=== PATIENT | female | born 1935 | race Caucasian/White ===

== ENCOUNTER 2020-04-30 18:06 | Observation (INO) ==
[2020-05-01] MEDS ORDERED: hydrALAZINE 20 MG/1 ML VIAL IV PRN (00:08)
[2020-05-01] MEDS ORDERED: ONDANSETRON 4 MG/2 ML VIAL IV PRN (00:08)
[2020-05-01] MEDS ORDERED: ACETAMINOPHEN 325 MG TABLET PO PRN (00:08)
[2020-05-01] MEDS ORDERED: GLUCAGON 1 MG VIAL IM PRN (00:08)
[2020-05-01] MEDS ORDERED: DEXTROSE 50% 25 GM/50 ML VIAL IV PRN (00:08)
[2020-05-01] MEDS ORDERED: FUROSEMIDE 40 MG/4 ML VIAL IV ONE (00:31)
[2020-05-01 01:15] LABS: Risk Ratio 3.51; Thyroid Stimulating Hormone 92.6 uIU/ml (0.358-3.74); VLDL CHOLESTEROL 15.6 MG/DL
[2020-05-01 03:12] LABS: Basophils % 0.6 % (0.0-0.8); Eosinophils # 0.2 10*3/uL (0.0-0.87); Eosinophils % 2.5 % (0.00-10.9); Hematocrit 33.2 VOL% (35.7-47.0); Hemoglobin 10.7 GM/DL (12.0-16.0); Immature Granulocytes % 0.3 %; Immature Granulocytes Absolute 0.02 #; Lymphocytes # 1.4 10*3/uL (1.4-4.0); Mean Corpuscular HGB Conc 32.2 GM/DL (32-36); Mean Platelet Volume 11.5 FL (9.6-12.0); Monocytes % 6.7 % (1.7-12.7); Neutrophils % 68.9 % (38.7-73.9); Platelet Count 107 T/CUMM (130-400); Red Blood Count 3.46 MC/CUMM (3.8-5.5); Red Cell Distribution Width 15.1 % (9.3-17.3); White Blood Count 6.7 T/CUMM (4-12)
[2020-05-01 04:21] LABS: Calcium 7.7 MG/DL (8.5-10.1)
[2020-05-01] MEDS: POTASSIUM CHLORIDE 20 MEQ TABLET PO PRN ×3 (05:52→11:10)
[2020-05-01] MEDS ORDERED: LEVOTHYROXINE 125 MCG TABLET PO SCH (06:00)
[2020-05-01 07:35] LABS: Apearance,Urine CLEAR (Clear); Bilirubin,Urine Negative (Negative); Blood, Urine Negative (Negative); Glucose,Urine (UA) Negative (Negative); Ketones,Urine Negative (Negative); Nitrite,Urine Negative (Negative); Protein,Urine Negative; RBC,Urine <1 /HPF (0-4); Urine Color Colorless (Yellow); Urine Specific Gravity 1.005 (1.001-1.035); Urine Urobilinogen < 2.0 EU/DL (0.2-1.0)
[2020-05-01 08:24] LABS: Free T4 (Free Thyroxine) 0.85 NG/DL (0.76-1.46)
[2020-05-01] MEDS: buPROPion SR 150 MG TABLET PO SCH ×3 (08:43→21:52)
[2020-05-01] MEDS: ASPIRIN 325 MG TABLET PO SCH (08:43)
[2020-05-01] MEDS: SERTRALINE 100 MG TABLET PO SCH (08:44)
[2020-05-01] MEDS: ENOXAPARIN 30 MG/0.3 ML SYRINGE SUBCUT SCH (08:44)
[2020-05-01] MEDS: amLODIPine 5 MG TABLET PO SCH (08:44)
[2020-05-01 08:57] LABS: Troponin I 0.091 NG/ML (0.00-0.045)
[2020-05-01] MEDS ORDERED: PANTOPRAZOLE 40 MG TABLET PO SCH (09:00)
[2020-05-01 19:24] LABS: Troponin I 0.061 NG/ML (0.00-0.045)
[2020-05-01] MEDS: ATORVASTATIN 40 MG TABLET PO SCH (21:42)
[2020-05-01] MEDS: LATANOPROST 0.005% OPH SOLN 2.5 ML BOTTLE BOTH EYES SCH (21:49)
[2020-05-02] MEDS: LEVOTHYROXINE 150 MCG TABLET PO SCH (06:22)
[2020-05-02 06:28] LABS: Basophils # 0.1 10*3/uL (0.0-0.2); Eosinophils # 0.1 10*3/uL (0.0-0.87); Eosinophils % 2.5 % (0.00-10.9); Hematocrit 31.2 VOL% (35.7-47.0); Hemoglobin 9.9 GM/DL (12.0-16.0); Immature Granulocytes % 0.2 %; Immature Granulocytes Absolute 0.01 #; Lymphocytes # 0.8 10*3/uL (1.4-4.0); Lymphocytes % 16.3 % (21.3-54.2); Mean Corpuscular HGB Conc 31.7 GM/DL (32-36); Mean Corpuscular Volume 95.7 FL (87-102); Mean Platelet Volume 12.4 FL (9.6-12.0); Monocytes % 9.1 % (1.7-12.7); Neutrophils % 70.9 % (38.7-73.9); Platelet Count 97 T/CUMM (130-400); Red Blood Count 3.26 MC/CUMM (3.8-5.5); Red Cell Distribution Width 15.1 % (9.3-17.3); White Blood Count 4.8 T/CUMM (4-12)
[2020-05-02 06:59] LABS: Calcium 7.1 MG/DL (8.5-10.1)
[2020-05-02] MEDS: buPROPion SR 150 MG TABLET PO SCH (08:45)
[2020-05-02] MEDS: ASPIRIN 325 MG TABLET PO SCH (08:46)
[2020-05-02] MEDS: ENOXAPARIN 30 MG/0.3 ML SYRINGE SUBCUT SCH (08:46)
[2020-05-02] MEDS: amLODIPine 5 MG TABLET PO SCH (08:47)
[2020-05-02] MEDS: SERTRALINE 100 MG TABLET PO SCH (08:47)
[2020-05-02] MEDS ORDERED: FUROSEMIDE 40 MG/4 ML VIAL IV SCH ×2 (09:00→21:00)
[2020-05-02] MEDS: cefTRIAXone 1,000 MG in SYRINGE 1 EACH IV SCH (10:12)
[2020-05-02] MEDS: POTASSIUM CHLORIDE 20 MEQ TABLET PO PRN ×3 (10:13→17:08)
[2020-05-02 11:21] LABS: Lymphocytes 14 % (20-55); Segmented Neutrophils 84 % (50-85); Total Cells Counted 100
[2020-05-02 11:22] LABS: Platelet Estimate Adequate; Polychromasia Slight
[2020-05-02] MEDS: carvediloL 6.25 MG TABLET PO SCH ×2 (12:28→17:07)
[2020-05-02] MEDS: APIXABAN 2.5 MG TABLET PO SCH ×2 (12:28→20:46)
[2020-05-02] MEDS: FUROSEMIDE 40 MG/4 ML VIAL IV SCH (17:06)
[2020-05-02] MEDS: LATANOPROST 0.005% OPH SOLN 2.5 ML BOTTLE BOTH EYES SCH (20:45)
[2020-05-02] MEDS: ASCORBIC ACID 500 MG TABLET PO SCH (20:45)
[2020-05-02] MEDS: ATORVASTATIN 40 MG TABLET PO SCH (20:46)
[2020-05-03 05:45] LABS: Basophils # 0.1 10*3/uL (0.0-0.2); Eosinophils # 0.2 10*3/uL (0.0-0.87); Eosinophils % 3.3 % (0.00-10.9); Hematocrit 31.3 VOL% (35.7-47.0); Hemoglobin 10.1 GM/DL (12.0-16.0); Immature Granulocytes % 0.4 %; Immature Granulocytes Absolute 0.02 #; Lymphocytes % 20.4 % (21.3-54.2); Mean Corpuscular HGB Conc 32.3 GM/DL (32-36); Mean Corpuscular Volume 95.1 FL (87-102); Mean Platelet Volume 12.5 FL (9.6-12.0); Monocytes % 9.2 % (1.7-12.7); Neutrophils % 65.7 % (38.7-73.9); Platelet Count 112 T/CUMM (130-400); Red Blood Count 3.29 MC/CUMM (3.8-5.5); Red Cell Distribution Width 14.8 % (9.3-17.3); White Blood Count 5.1 T/CUMM (4-12)
[2020-05-03] MEDS: LEVOTHYROXINE 150 MCG TABLET PO SCH (05:54)
[2020-05-03 06:04] LABS: Calcium 7.3 MG/DL (8.5-10.1); Osmolality,Calculated 283.3 MOS/KG (273-304)
[2020-05-03] MEDS: carvediloL 6.25 MG TABLET PO SCH (08:30)
[2020-05-03] MEDS: APIXABAN 2.5 MG TABLET PO SCH (08:48)
[2020-05-03] MEDS: SERTRALINE 100 MG TABLET PO SCH (08:48)
[2020-05-03] MEDS: FUROSEMIDE 40 MG/4 ML VIAL IV SCH (08:48)
[2020-05-03] MEDS: amLODIPine 5 MG TABLET PO SCH (08:48)
[2020-05-03] MEDS: ASCORBIC ACID 500 MG TABLET PO SCH (08:48)
[2020-05-03] MEDS ORDERED: ASPIRIN EC 81 MG TABLET PO SCH (09:00)
[2020-05-03] MEDS ORDERED: POTASSIUM CHLORIDE 20 MEQ TABLET PO SCH (09:00)
[2020-05-03] MEDS: cefTRIAXone 1,000 MG in SYRINGE 1 EACH IV SCH (09:26)
[2020-05-03] MEDS: POTASSIUM CHLORIDE 20 MEQ TABLET PO PRN (09:29)
[2020-05-03 11:05] VITALS: BP 94/55
[2020-05-03] MEDS ORDERED: PNEUMOCOCCAL VACCINE (23 VALENT) 0.5 ML VIAL IM ONE (12:48)
== END 2020-05-03 15:59 | disposition home health service (06) ==
LOC: N.TELEN → SUATTDRO 21:58
PROVIDERS: ADMIT Internal Medicine; ATTEND Hospitalist

== ENCOUNTER 2020-12-05 11:53 | Inpatient (IN) ==
[2020-12-05] MEDS ORDERED: GLUCAGON 1 MG VIAL IM PRN (14:17)
[2020-12-05] MEDS ORDERED: DEXTROSE 50% 25 GM/50 ML VIAL IV PRN (14:17)
[2020-12-05] MEDS ORDERED: ACETAMINOPHEN 325 MG TABLET PO PRN (14:17)
[2020-12-05] MEDS ORDERED: cefTRIAXone 1,000 MG in SODIUM CHLORIDE 0.9% 100 ML IV SCH (15:30)
[2020-12-05] MEDS ORDERED: FUROSEMIDE 40 MG/4 ML VIAL IV ONE (15:44)
[2020-12-05 15:56] LABS: Basophils % 0.2 % (0.0-0.8); Eosinophils % 0.1 % (0.00-10.9); Hematocrit 35.3 VOL% (35.7-47.0); Hemoglobin 11.2 GM/DL (12.0-16.0); Immature Granulocytes % 0.4 %; Immature Granulocytes Absolute 0.05 #; Lymphocytes # 0.6 10*3/uL (1.4-4.0); Lymphocytes % 5.1 % (21.3-54.2); Mean Corpuscular HGB Conc 31.7 GM/DL (32-36); Mean Corpuscular Volume 90.1 FL (87-102); Mean Platelet Volume 12.5 FL (9.6-12.0); Monocytes % 8.3 % (1.7-12.7); NRBC # 0.02 10*3/uL; Neutrophils % 85.9 % (38.7-73.9); Platelet Count 75 T/CUMM (130-400); Red Blood Count 3.92 MC/CUMM (3.8-5.5); Red Cell Distribution Width 15.4 % (9.3-17.3); White Blood Count 11.9 T/CUMM (4-12)
[2020-12-05 16:03] LABS: Osmolality,Calculated 288.7 MOS/KG (273-304); Potassium 3.2 MMOL/L (3.5-5.1)
[2020-12-05 16:08] LABS: Calcium 5.6 MG/DL (8.5-10.1)
[2020-12-05 16:15] LABS: Troponin I 0.272 NG/ML (0.00-0.045)
[2020-12-05 16:20] LABS: Anisocytosis 1+; Hypochromasia 1+
[2020-12-05 16:21] LABS: Burr Cells Few; Elliptocytes Few; Platelet Estimate Decreased; Polychromasia 1+
[2020-12-05] MEDS ORDERED: POTASSIUM CHLORIDE RIDER 10 MEQ in PREMIX 1 EACH IV PRN (16:22)
[2020-12-05] MEDS ORDERED: SODIUM CHLORIDE 0.9% 500 ML IV ONE (16:40)
[2020-12-05] MEDS ORDERED: LIDOCAINE 1% 20 ML VIAL MISC INJ ONE (16:50)
[2020-12-05] MEDS: carvediloL 6.25 MG TABLET PO SCH (18:05)
[2020-12-05] MEDS: POTASSIUM CHLORIDE 20 MEQ TABLET PO PRN ×2 (18:05→21:08)
[2020-12-05] MEDS: AZITHROMYCIN INJ 500 MG in SODIUM CHLORIDE 0.9% 250 ML IV SCH (18:05)
[2020-12-05 18:38] LABS: Troponin I 0.257 NG/ML (0.00-0.045)
[2020-12-05] MEDS: ATORVASTATIN 40 MG TABLET PO SCH (21:08)
[2020-12-05] MEDS: CALCIUM (CARBONATE) 500 MG TABLET PO SCH (21:09)
[2020-12-05] MEDS: APIXABAN 2.5 MG TABLET PO SCH (21:09)
[2020-12-05] MEDS: ONDANSETRON 4 MG/2 ML VIAL IV PRN (21:10)
[2020-12-05] MEDS: MUPIROCIN 2% OINT 22 GM TUBE TOP SCH (21:12)
[2020-12-05] MEDS: LATANOPROST 0.005% OPH SOLN 2.5 ML BOTTLE BOTH EYES SCH (21:15)
[2020-12-05] MEDS: ALBUTEROL/IPRATROPIUM 3 ML NEB RESP TX SCH (23:04)
[2020-12-06] MEDS: POTASSIUM CHLORIDE 20 MEQ TABLET PO PRN (00:31)
[2020-12-06 05:20] LABS: Basophils % 0.2 % (0.0-0.8); Eosinophils % 0.1 % (0.00-10.9); Hematocrit 30.3 VOL% (35.7-47.0); Hemoglobin 9.6 GM/DL (12.0-16.0); Immature Granulocytes % 0.5 %; Immature Granulocytes Absolute 0.06 #; Lymphocytes # 0.8 10*3/uL (1.4-4.0); Lymphocytes % 7.3 % (21.3-54.2); Mean Corpuscular HGB Conc 31.7 GM/DL (32-36); Mean Corpuscular Volume 91.5 FL (87-102); Mean Platelet Volume 12.7 FL (9.6-12.0); Monocytes % 9.6 % (1.7-12.7); NRBC # 0.03 10*3/uL; Neutrophils % 82.3 % (38.7-73.9); Platelet Count 67 T/CUMM (130-400); Red Blood Count 3.31 MC/CUMM (3.8-5.5); Red Cell Distribution Width 15.4 % (9.3-17.3); White Blood Count 11.3 T/CUMM (4-12)
[2020-12-06 05:29] LABS: Osmolality,Calculated 292.4 MOS/KG (273-304); Parathyroid Hormone Intact 62.4 PG/ML (18.4-80.1); Potassium 3.9 MMOL/L (3.5-5.1)
[2020-12-06] MEDS: ALBUTEROL/IPRATROPIUM 3 ML NEB RESP TX SCH ×4 (05:42→19:29)
[2020-12-06 05:46] LABS: Hypochromasia 1+; Lymphocytes 7 % (20-55); Microcytosis 1+; Nucleated Red Blood Cells 1 (0-5); Ovalocytes Slight; Platelet Estimate Decreased; Segmented Neutrophils 89 % (50-85); Total Cells Counted 100
[2020-12-06 05:50] LABS: Calcium 5.3 MG/DL (8.5-10.1)
[2020-12-06] MEDS: LEVOTHYROXINE 125 MCG TABLET PO SCH (06:19)
[2020-12-06] MEDS: APIXABAN 2.5 MG TABLET PO SCH (08:35)
[2020-12-06] MEDS: PANTOPRAZOLE 40 MG TABLET PO SCH (08:36)
[2020-12-06] MEDS: CHOLECALCIFEROL 1,000 UNIT TABLET PO SCH (08:36)
[2020-12-06] MEDS: carvediloL 6.25 MG TABLET PO SCH ×2 (08:36→16:02)
[2020-12-06] MEDS: buPROPion XL 150 MG TABLET PO SCH (08:37)
[2020-12-06] MEDS: SERTRALINE 100 MG TABLET PO SCH (08:37)
[2020-12-06] MEDS: CALCIUM (CARBONATE) 500 MG TABLET PO SCH ×3 (08:38→21:12)
[2020-12-06] MEDS: MUPIROCIN 2% OINT 22 GM TUBE TOP SCH ×2 (08:38→21:12)
[2020-12-06] MEDS: cefTRIAXone 1,000 MG in SODIUM CHLORIDE 0.9% 100 ML IV SCH (08:38)
[2020-12-06] MEDS ORDERED: FUROSEMIDE 40 MG/4 ML VIAL IV SCH (09:00)
[2020-12-06] MEDS ORDERED: ASPIRIN CHEW 81 MG TABLET PO SCH (09:00)
[2020-12-06] MEDS: ASPIRIN EC 81 MG TABLET PO SCH (09:09)
[2020-12-06] MEDS: ASCORBIC ACID 500 MG TABLET PO SCH ×2 (09:15→21:12)
[2020-12-06] MEDS ORDERED: CALCIUM GLUCONATE 2,000 MG in SODIUM CHLORIDE 0.9% 100 ML IV ONE (15:00)
[2020-12-06] MEDS: AZITHROMYCIN INJ 500 MG in SODIUM CHLORIDE 0.9% 250 ML IV SCH (16:02)
[2020-12-06] MEDS: ATORVASTATIN 40 MG TABLET PO SCH (21:12)
[2020-12-06] MEDS: LATANOPROST 0.005% OPH SOLN 2.5 ML BOTTLE BOTH EYES SCH (21:15)
[2020-12-07] MEDS: ALBUTEROL/IPRATROPIUM 3 ML NEB RESP TX SCH ×4 (00:42→19:37)
[2020-12-07 05:21] LABS: Basophils % 0.3 % (0.0-0.8); Eosinophils # 0.1 10*3/uL (0.0-0.87); Hematocrit 30.2 VOL% (35.7-47.0); Hemoglobin 9.5 GM/DL (12.0-16.0); Immature Granulocytes % 0.8 %; Immature Granulocytes Absolute 0.09 #; Lymphocytes # 1.4 10*3/uL (1.4-4.0); Lymphocytes % 12.6 % (21.3-54.2); Mean Corpuscular HGB Conc 31.5 GM/DL (32-36); Mean Corpuscular Volume 92.1 FL (87-102); Mean Platelet Volume 12.7 FL (9.6-12.0); Monocytes % 9.4 % (1.7-12.7); Neutrophils % 75.9 % (38.7-73.9); Red Blood Count 3.28 MC/CUMM (3.8-5.5); Red Cell Distribution Width 15.5 % (9.3-17.3); White Blood Count 10.8 T/CUMM (4-12)
[2020-12-07 05:25] LABS: Platelet Count 97 T/CUMM (130-400)
[2020-12-07 05:33] LABS: Calcium 6.4 MG/DL (8.5-10.1); Osmolality,Calculated 301.8 MOS/KG (273-304); Potassium 4.1 MMOL/L (3.5-5.1)
[2020-12-07 05:39] LABS: Hypochromasia 1+
[2020-12-07 05:40] LABS: Microcytosis 1+; Ovalocytes Slight; Platelet Estimate Decreased; Tear Drop Cells Slight
[2020-12-07] MEDS: LEVOTHYROXINE 125 MCG TABLET PO SCH (06:10)
[2020-12-07] MEDS: PANTOPRAZOLE 40 MG TABLET PO SCH (08:44)
[2020-12-07] MEDS: buPROPion XL 150 MG TABLET PO SCH (08:44)
[2020-12-07] MEDS: SERTRALINE 100 MG TABLET PO SCH (08:44)
[2020-12-07] MEDS: ASCORBIC ACID 500 MG TABLET PO SCH ×2 (08:45→20:36)
[2020-12-07] MEDS: carvediloL 6.25 MG TABLET PO SCH (08:45)
[2020-12-07] MEDS: CALCIUM (CARBONATE) 500 MG TABLET PO SCH ×3 (08:45→20:37)
[2020-12-07] MEDS: CHOLECALCIFEROL 1,000 UNIT TABLET PO SCH (08:45)
[2020-12-07] MEDS: ASPIRIN EC 81 MG TABLET PO SCH (08:45)
[2020-12-07] MEDS: MUPIROCIN 2% OINT 22 GM TUBE TOP SCH ×2 (08:51→20:37)
[2020-12-07] MEDS: cefTRIAXone 1,000 MG in SODIUM CHLORIDE 0.9% 100 ML IV SCH (08:51)
[2020-12-07] MEDS: ALBUMIN 25% 12.5 GM/50 ML VIAL IV SCH ×2 (12:58→20:37)
[2020-12-07 13:57] LABS: Bacteria,Urine Few /HPF (Few); Bilirubin,Urine Negative (Negative); Blood, Urine Small mg/dL (Negative); Glucose,Urine (UA) Negative (Negative); Hyaline Casts,Urine 31 /LPF (0-3); Ketones,Urine 5 mg/dL (Negative); Mucus,Urine Occasional /LPF (Occasional); Nitrite,Urine Negative (Negative); Protein,Urine 30 MG/DL; Squamous Epithelial Cell,Urine Occasional /HPF (0-10); Urine Appearance CLOUDY (Clear); Urine Color Yellow (Yellow); Urine Specific Gravity 1.015 (1.001-1.035); Urine Urobilinogen < 2.0 EU/DL (0.2-1.0); WBC,Urine 526 /HPF (0-6)
[2020-12-07] MEDS: carvediloL 12.5 MG TABLET PO SCH (16:11)
[2020-12-07] MEDS: AZITHROMYCIN INJ 500 MG in SODIUM CHLORIDE 0.9% 250 ML IV SCH (16:27)
[2020-12-07] MEDS: ATORVASTATIN 40 MG TABLET PO SCH (20:37)
[2020-12-07] MEDS: LATANOPROST 0.005% OPH SOLN 2.5 ML BOTTLE BOTH EYES SCH (20:37)
[2020-12-08] MEDS: ALBUTEROL/IPRATROPIUM 3 ML NEB RESP TX SCH ×4 (00:39→19:45)
[2020-12-08] MEDS: ALBUMIN 25% 12.5 GM/50 ML VIAL IV SCH (05:26)
[2020-12-08 05:39] LABS: Basophils % 0.4 % (0.0-0.8); Eosinophils # 0.2 10*3/uL (0.0-0.87); Eosinophils % 2.3 % (0.00-10.9); Hematocrit 29.2 VOL% (35.7-47.0); Hemoglobin 9.4 GM/DL (12.0-16.0); Immature Granulocytes % 0.8 %; Immature Granulocytes Absolute 0.08 #; Lymphocytes # 1.7 10*3/uL (1.4-4.0); Lymphocytes % 17.7 % (21.3-54.2); Mean Corpuscular HGB Conc 32.2 GM/DL (32-36); Mean Corpuscular Volume 89.3 FL (87-102); Mean Platelet Volume 12.6 FL (9.6-12.0); Monocytes % 10.6 % (1.7-12.7); NRBC # 0.02 10*3/uL; Neutrophils % 68.2 % (38.7-73.9); Platelet Count 119 T/CUMM (130-400); Red Blood Count 3.27 MC/CUMM (3.8-5.5); Red Cell Distribution Width 15.5 % (9.3-17.3); White Blood Count 9.8 T/CUMM (4-12)
[2020-12-08 06:02] LABS: Calcium 6.6 MG/DL (8.5-10.1); Potassium 3.8 MMOL/L (3.5-5.1)
[2020-12-08] MEDS: LEVOTHYROXINE 125 MCG TABLET PO SCH (06:21)
[2020-12-08] MEDS: cefTRIAXone 1,000 MG in SODIUM CHLORIDE 0.9% 100 ML IV SCH (09:23)
[2020-12-08] MEDS: MUPIROCIN 2% OINT 22 GM TUBE TOP SCH ×2 (09:24→21:55)
[2020-12-08] MEDS: CALCIUM (CARBONATE) 500 MG TABLET PO SCH ×3 (09:33→21:54)
[2020-12-08] MEDS: ASPIRIN EC 81 MG TABLET PO SCH (09:33)
[2020-12-08] MEDS: carvediloL 12.5 MG TABLET PO SCH ×2 (09:33→18:49)
[2020-12-08] MEDS: buPROPion XL 150 MG TABLET PO SCH (09:34)
[2020-12-08] MEDS: ASCORBIC ACID 500 MG TABLET PO SCH ×2 (09:34→21:54)
[2020-12-08] MEDS: CHOLECALCIFEROL 1,000 UNIT TABLET PO SCH (09:34)
[2020-12-08] MEDS: PANTOPRAZOLE 40 MG TABLET PO SCH (09:34)
[2020-12-08] MEDS: SERTRALINE 100 MG TABLET PO SCH (09:34)
[2020-12-08] MEDS: AZITHROMYCIN INJ 500 MG in SODIUM CHLORIDE 0.9% 250 ML IV SCH (18:49)
[2020-12-08] MEDS: ONDANSETRON 4 MG/2 ML VIAL IV PRN (21:54)
[2020-12-08] MEDS: LATANOPROST 0.005% OPH SOLN 2.5 ML BOTTLE BOTH EYES SCH (21:54)
[2020-12-08] MEDS: ATORVASTATIN 40 MG TABLET PO SCH (21:54)
[2020-12-09] MEDS: ALBUTEROL/IPRATROPIUM 3 ML NEB RESP TX SCH ×3 (00:22→13:05)
[2020-12-09 05:17] LABS: Basophils # 0.1 10*3/uL (0.0-0.2); Basophils % 0.5 % (0.0-0.8); Eosinophils # 0.4 10*3/uL (0.0-0.87); Eosinophils % 3.6 % (0.00-10.9); Hemoglobin 9.6 GM/DL (12.0-16.0); Immature Granulocytes % 1.3 %; Immature Granulocytes Absolute 0.13 #; Lymphocytes # 1.3 10*3/uL (1.4-4.0); Lymphocytes % 12.8 % (21.3-54.2); Mean Corpuscular Volume 89.3 FL (87-102); Mean Platelet Volume 11.8 FL (9.6-12.0); Monocytes % 7.3 % (1.7-12.7); Neutrophils % 74.5 % (38.7-73.9); Platelet Count 136 T/CUMM (130-400); Red Blood Count 3.36 MC/CUMM (3.8-5.5); Red Cell Distribution Width 15.8 % (9.3-17.3); White Blood Count 10.1 T/CUMM (4-12)
[2020-12-09 05:38] LABS: Eosinophils 3 % (0-10); Hypochromasia 1+; Lymphocytes 11 % (20-55); Microcytosis 1+; Platelet Estimate Normal; Segmented Neutrophils 80 % (50-85); Total Cells Counted 100
[2020-12-09 05:43] LABS: Calcium 6.7 MG/DL (8.5-10.1); Osmolality,Calculated 297.1 MOS/KG (273-304); Potassium 3.6 MMOL/L (3.5-5.1)
[2020-12-09] MEDS: LEVOTHYROXINE 125 MCG TABLET PO SCH (06:38)
[2020-12-09] MEDS: MUPIROCIN 2% OINT 22 GM TUBE TOP SCH (10:04)
[2020-12-09] MEDS: cefTRIAXone 1,000 MG in SODIUM CHLORIDE 0.9% 100 ML IV SCH (10:04)
[2020-12-09] MEDS: ASPIRIN EC 81 MG TABLET PO SCH (10:07)
[2020-12-09] MEDS: carvediloL 12.5 MG TABLET PO SCH (10:07)
[2020-12-09] MEDS: CALCIUM (CARBONATE) 500 MG TABLET PO SCH ×2 (10:14→16:28)
[2020-12-09] MEDS: PANTOPRAZOLE 40 MG TABLET PO SCH (10:14)
[2020-12-09] MEDS: ASCORBIC ACID 500 MG TABLET PO SCH (10:14)
[2020-12-09] MEDS: CHOLECALCIFEROL 1,000 UNIT TABLET PO SCH (10:15)
[2020-12-09] MEDS: buPROPion XL 150 MG TABLET PO SCH (10:16)
[2020-12-09] MEDS: SERTRALINE 100 MG TABLET PO SCH (10:31)
[2020-12-09] MEDS ORDERED: MEROPENEM 1,000 MG in SODIUM CHLORIDE 0.9% 100 ML IV SCH (11:00)
[2020-12-09] MEDS ORDERED: ALBUTEROL/IPRATROPIUM 3 ML NEB RESP TX PRN (13:46)
[2020-12-09 16:07] VITALS: BP 142/78
== END 2020-12-09 16:20 | disposition swing bed (61) | DRG 987 ==
LOC: N.TELES → SUATTDRO 13:25
PROVIDERS: ADMIT Internal Medicine; ATTEND Internal Medicine